=== PATIENT | male | born 1960 | race Caucasian/White ===

== ENCOUNTER → 2016-11-05 | Outpatient (CLI) | payer BC ==
[2016-11-05 09:49] LABS: Aty Lym Flag Slight; CH 33.6; CHCM 34.4; HCT 49.6 % (39.0-53.0); HDW 2.33; HGB 16.7 gm/dL (13.0-17.5); MCH 32.9 pg (25.0-35.0); MCHC 33.6 g/dL (31.0-37.0); MCV 98.1 fL (80.0-100.0); Mean Platelet Volume 8.4; RBC 5.06 m/uL (4.30-5.90); RDW 12.2 % (11.5-15.5); WBC 5.2 k/uL (3.8-10.6); WBC (Perox) 5.12
[2016-11-05 10:01] LABS: ALT 84 U/L (21-72); AST 72 U/L (17-59); Alkaline Phosphatase 55 U/L (38-126); Anion Gap 11 mmol/L; Blood Urea Nitrogen 15 mg/dL (9-20); Calcium 9.4 mg/dL (8.4-10.2); Carbon Dioxide 24 mmol/L (22-30); Chloride 105 mmol/L (98-107); Cholesterol 150 mg/dL (<200); Glucose 104 mg/dL (74-99); HDL Cholesterol 44 mg/dL (40-60); Non-African American GFR(MDRD) >60 (>60 ml/min/1.73 sqM); Potassium 4.8 mmol/L (3.5-5.1); Sodium 140 mmol/L (137-145); Total Bilirubin 0.9 mg/dL (0.2-1.3); Total Protein 7.2 g/dL (6.3-8.2); Triglycerides 169 mg/dL (<150)
[2016-11-05 10:18] LABS: Add Differential Manual Differential
[2016-11-05 10:20] LABS: Manual Review Performed; Nucleated Red Blood Cells 0 /100 WBC (0-0); Total Cells Counted 100
[2016-11-05 10:21] LABS: RBC Morphology Normal
[2016-11-05 11:09] LABS: Hemoglobin A1C 5.6 % (4.2-6.1)
== END | disposition home or self-care (01) ==
LOC: LABWHC1 09:07
PROVIDERS: ATTEND Internal Medicine Critical Care Medicine
DX: Z00.00 Encounter for general adult medical examination without abnormal findings (principal); K21.9 Gastro-esophageal reflux disease without esophagitis; E78.5 Hyperlipidemia, unspecified; Z12.5 Encounter for screening for malignant neoplasm of prostate
CPT/HCPCS: 84439; 80061; 80053; 83036; 84443; 85025; 82306; 36415; G0103

== ENCOUNTER → 2017-11-05 | Outpatient (CLI) | payer BC ==
[2017-11-05 08:14] LABS: Basophils # (A) 0.1 k/uL (0-0.2); Basophils % (A) 1 %; Eosinophils # (A) 0.2 k/uL (0-0.7); Eosinophils % (A) 4 %; HCT 47.5 % (39.0-53.0); HGB 15.3 gm/dL (13.0-17.5); Lymphocytes # (A) 1.8 k/uL (1.0-4.8); Lymphocytes % (A) 36 %; MCH 32.6 pg (25.0-35.0); MCHC 32.3 g/dL (31.0-37.0); Mean Platelet Volume 7.6; Monocytes # (A) 0.4 k/uL (0-1.0); Monocytes % (A) 8 %; Neutrophils # (A) 2.4 k/uL (1.3-7.7); Neutrophils % (A) 47 %; Platelet Count 135 k/uL (150-450); RDW 11.8 % (11.5-15.5); WBC 5.1 k/uL (3.8-10.6)
[2017-11-05 09:47] LABS: ALT 73 U/L (21-72); AST 54 U/L (17-59); Albumin 4.2 g/dL (3.5-5.0); Alkaline Phosphatase 58 U/L (38-126); Anion Gap 11 mmol/L; Bilirubin, Delta 0.4 mg/dL (0.0-0.2); Bilirubin,Unconjugated 0.3 mg/dL (0.0-1.1); Blood Urea Nitrogen 17 mg/dL (9-20); Calcium 9.7 mg/dL (8.4-10.2); Carbon Dioxide 28 mmol/L (22-30); Chloride 104 mmol/L (98-107); Cholesterol 156 mg/dL (<200); Glucose 111 mg/dL (74-99); HDL Cholesterol 45 mg/dL (40-60); LDL Cholesterol,Calculated 69 mg/dL (0-99); Potassium 4.4 mmol/L (3.5-5.1); Sodium 143 mmol/L (137-145); Total Bilirubin 0.7 mg/dL (0.2-1.3); Triglycerides 209 mg/dL (<150)
[2017-11-05 10:04] LABS: T4, Free (Free Thyroxine) 0.76 ng/dL (0.78-2.19)
[2017-11-05 10:18] LABS: PSA Annual Screen 1.34 ng/mL (0.00-4.00)
[2017-11-05 16:48] LABS: Hemoglobin A1C 5.6 % (4.0-6.0)
== END | disposition home or self-care (01) ==
LOC: LABWHC1 07:15
PROVIDERS: ATTEND Internal Medicine Critical Care Medicine
DX: E78.5 Hyperlipidemia, unspecified (principal); N40.0 Benign prostatic hyperplasia without lower urinary tract symptoms; Z79.899 Other long term (current) drug therapy
CPT/HCPCS: 84439; 80061; 80053; 82248; 84443; 85025; 82306; 83036; 36415; G0103

== ENCOUNTER → 2019-01-11 | Outpatient (CLI) | payer BC ==
[2019-01-11 07:52] LABS: Basophils % (A) 1 %; Eosinophils # (A) 0.2 k/uL (0-0.7); Eosinophils % (A) 3 %; HCT 46.7 % (39.0-53.0); HGB 15.5 gm/dL (13.0-17.5); Lymphocytes # (A) 1.7 k/uL (1.0-4.8); Lymphocytes % (A) 35 %; MCH 32.7 pg (25.0-35.0); MCHC 33.2 g/dL (31.0-37.0); MCV 98.5 fL (80.0-100.0); Mean Platelet Volume 7.9; Monocytes # (A) 0.4 k/uL (0-1.0); Monocytes % (A) 8 %; Neutrophils # (A) 2.4 k/uL (1.3-7.7); Neutrophils % (A) 49 %; Platelet Count 154 k/uL (150-450); RBC 4.74 m/uL (4.30-5.90); RDW 13.7 % (11.5-15.5); WBC 4.9 k/uL (3.8-10.6)
[2019-01-11 11:33] LABS: Albumin 4.5 g/dL (3.80-4.90); Albumin/Globulin Ratio 2.37 (1.60-3.17); Anion Gap 9.1 mmol/L (4.00-12.00); Calcium 9.4 mg/dL (8.7-10.3); Carbon Dioxide 27.9 mmol/L (21.6-31.8); Globulin 1.9 g/dL (1.6-3.3); LDL Cholesterol,Calculated 68.2 mg/dL (0.0-131.0); Potassium 4.1 mmol/L (3.5-5.5); Total Bilirubin 0.9 mg/dL (0.3-1.2); Total Protein 6.4 g/dL (6.2-8.2); VLDL Calculation 36.8 mg/dL (5.00-40.00)
[2019-01-11 12:54] LABS: T4, Free (Free Thyroxine) 0.9 ng/dL (0.80-1.80)
[2019-01-11 14:18] LABS: Hemoglobin A1C 5.9 % (4.0-6.0)
== END | disposition home or self-care (01) ==
LOC: LABWHC1 07:14
PROVIDERS: ATTEND Internal Medicine Critical Care Medicine
DX: Z00.00 Encounter for general adult medical examination without abnormal findings (principal); G47.33 Obstructive sleep apnea (adult) (pediatric); F41.9 Anxiety disorder, unspecified; K21.9 Gastro-esophageal reflux disease without esophagitis; E78.5 Hyperlipidemia, unspecified; Z12.5 Encounter for screening for malignant neoplasm of prostate
CPT/HCPCS: 84439; 80061; 80053; 84443; 85025; 82306; 83036; 36415; G0103

== ENCOUNTER → 2020-04-29 | Outpatient (CLI) | payer BC ==
[2020-04-29 10:00] LABS: Basophils # (A) 0.1 k/uL (0-0.2); Basophils % (A) 1 %; Eosinophils # (A) 0.2 k/uL (0-0.7); Eosinophils % (A) 3 %; HCT 47.2 % (39.0-53.0); HGB 15.4 gm/dL (13.0-17.5); Lymphocytes # (A) 1.7 k/uL (1.0-4.8); Lymphocytes % (A) 34 %; MCHC 32.7 g/dL (31.0-37.0); MCV 101.1 fL (80.0-100.0); Mean Platelet Volume 8.3; Monocytes # (A) 0.5 k/uL (0-1.0); Monocytes % (A) 9 %; Neutrophils # (A) 2.4 k/uL (1.3-7.7); Neutrophils % (A) 48 %; Platelet Count 129 k/uL (150-450); RBC 4.67 m/uL (4.30-5.90); RDW 12.1 % (11.5-15.5); WBC 5.1 k/uL (3.8-10.6)
[2020-04-29 15:56] LABS: African American GFR (CKD) 83.5 (60.0-200.0); Albumin 4.3 g/dL (3.80-4.90); Albumin/Globulin Ratio 2.05 (1.60-3.17); Anion Gap 5.7 mmol/L (4.00-12.00); BUN/Creat Ratio 17.27 Ratio (12.00-20.00); Calcium 9.1 mg/dL (8.7-10.3); Carbon Dioxide 24.3 mmol/L (21.6-31.8); Chol/HDL Ratio 3.3; Globulin 2.1 g/dL (1.6-3.3); LDL Cholesterol,Calculated 62.4 mg/dL (0.0-131.0); Non-African American GFR(CKD) 72.1 (60.0-200.0); Potassium 4.5 mmol/L (3.5-5.5); Total Protein 6.4 g/dL (6.2-8.2); VLDL Calculation 36.6 mg/dL (5.00-40.00)
[2020-04-29 16:04] LABS: PSA Annual Screen 1.6 ng/mL (0.0-4.0)
[2020-04-29 17:46] LABS: Hemoglobin A1C 5.8 % (4.0-6.0)
== END | disposition home or self-care (01) ==
LOC: LABWHC1 08:10
PROVIDERS: ATTEND Internal Medicine Critical Care Medicine
DX: Z00.00 Encounter for general adult medical examination without abnormal findings (principal); E78.5 Hyperlipidemia, unspecified; K21.9 Gastro-esophageal reflux disease without esophagitis; F41.9 Anxiety disorder, unspecified; G47.33 Obstructive sleep apnea (adult) (pediatric)
CPT/HCPCS: 84439; 80061; 80053; 84443; 85025; 83036; 36415; G0103

== ENCOUNTER → 2020-05-14 | Outpatient (CLI) | payer BC ==
[~2020-05-14] MED LIST: REGADENOSON 0.4 MG/5 ML SYRINGE IV ONE
--- NOTE | 2020-05-14 12:43 | NM ---
EXAMINATION TYPE: NM stress lexiscan cardiolite DATE OF EXAM: 05/14/2020 COMPARISON: NONE HISTORY: 59-year-old male with chest pain TECHNIQUE: After the intravenous administration of 10.5 mCi Tc 99m Sestamibi - Cardiolite resting SP ECT images acquired 55 minutes post injection. The patient received 0.4mg Lexiscan, 24.9 mCi Tc 99m Sestamibi - Stress images obtained [address] injection FINDINGS: Review of stress and rest SPECT images demonstrates no distinct perfusion abnormality. Mild left vent ricular dilatation. Gated analysis shows normal wall motion with an estimated left ventricular ejecti on fraction of 47 %. TID is calculated at 0.96, within normal limits. IMPRESSION: 1. No scintigraphic evidence for reversible ischemia. 2. There is mild left ventricular chamber enlargement and mildly diminished LVEF of 47%.
--- NOTE | 2020-05-15 10:57 | EST ---
Stress Test Results/Findings: Exam Performed: NM stress lexiscan cardiolite Exam Date: 05/14/20 Reason for Exam: CHEST PAIN Height: 6 ft 1 in Weight: 245 kg Protocol: LEXISCAN Stage: NA Duration of Exercise: NA Resting Heart Rate: 68 Resting Blood Pressure: 126/86 Maximum Achieved Heart Rate: 87 Maximum Achieved Blood Pressure: 161/87 85% PMHR: NA 100% PMHR: NA METS: NA Technologist Comment: Stress Test Results/Findings: At baseline patient's EKG shows normal sinus rhythm with heart rate of 68 bpm with borderline 0.[address] elevation in leads 2 and aVF, T-wave flattening in aVL. At peak infusion there is no significant change, no significant ST or T-wave deviation from baseline. Conclusions: 1. Normal EKG response to Lexiscan infusion without significant ischemic changes noted. 2. Nuclear imaging reported separately. [facility]
== END | disposition home or self-care (01) ==
LOC: RADNMMAIN 07:36
PROVIDERS: ATTEND Internal Medicine Critical Care Medicine
DX: I51.7 Cardiomegaly (principal)
CPT/HCPCS: 93017; 78452; A9500; J2785

== ENCOUNTER → 2020-09-12 | Outpatient (CLI) | payer BC ==
[2020-09-12 09:31] LABS: HCT 48.6 % (39.0-53.0); HGB 16.4 gm/dL (13.0-17.5); MCH 33.7 pg (25.0-35.0); MCHC 33.7 g/dL (31.0-37.0); MCV 99.9 fL (80.0-100.0); Mean Platelet Volume 8.3; Platelet Count 127 k/uL (150-450); RBC 4.87 m/uL (4.30-5.90); RDW 11.5 % (11.5-15.5); WBC 4.8 k/uL (3.8-10.6)
[2020-09-12 11:12] LABS: Basophils # (M) 0.05 k/uL (0-0.2); Myelocytes # (M) 0.05 k/uL (0); Myelocytes % 1 %; Nucleated Red Blood Cells 0 /100 WBC (0-0)
[2020-09-12 11:14] LABS: Band Neutrophils % 3 %; Eosinophils # (M) 0.24 k/uL (0-0.7); Lymphocytes # (M) 1.92 k/uL (1.0-4.8); Monocytes # (M) 0.58 k/uL (0-1.0); Neutrophils % (M) 40 %; Total Cells Counted 200
[2020-09-12 17:29] LABS: African American GFR (CKD) 93.7 (60.0-200.0); Albumin 4.6 g/dL (3.80-4.90); Albumin/Globulin Ratio 2.09 (1.60-3.17); Anion Gap 8.1 mmol/L (4.00-12.00); Calcium 9.5 mg/dL (8.7-10.3); Carbon Dioxide 26.9 mmol/L (21.6-31.8); Globulin 2.2 g/dL (1.6-3.3); Non-African American GFR(CKD) 80.9 (60.0-200.0); Potassium 4.5 mmol/L (3.5-5.5); Total Bilirubin 0.9 mg/dL (0.3-1.2); Total Protein 6.8 g/dL (6.2-8.2)
== END | disposition home or self-care (01) ==
LOC: LABWHC1 08:44
PROVIDERS: ATTEND Internal Medicine Critical Care Medicine
DX: D69.6 Thrombocytopenia, unspecified (principal); R94.5 Abnormal results of liver function studies
CPT/HCPCS: 36415; 80053; 85025

== ENCOUNTER → 2021-08-05 | Outpatient (CLI) | payer BC ==
[2021-08-05 14:53] LABS: Basophils # (A) 0.07 X 10*3/uL (0.00-0.10); Basophils % (A) 1.3 %; Eosinophils % (A) 5.5 %; HCT 47.9 % (39.6-50.0); HGB 16.5 g/dL (13.0-17.0); Lymphocytes # (A) 2.19 X 10*3/uL (0.90-5.00); Lymphocytes % (A) 40.3 %; MCH 34.2 pg (27.0-32.0); MCHC 34.4 g/dL (32.0-37.0); MCV 99.4 fL (80.0-97.0); Monocytes # (A) 0.68 X 10*3/uL (0.20-1.00); Monocytes % (A) 12.5 %; Neutrophils # (A) 2.18 X 10*3/uL (1.80-7.70); Platelet Count 144 X 10*3/uL (140-440); RBC 4.82 X 10*6/uL (4.40-5.60); RDW 11.5 % (11.5-14.5); WBC 5.44 X 10*3/uL (4.50-10.00)
[2021-08-05 17:57] LABS: ALT 74 U/L (10-49); AST 64 U/L (14-35); African American GFR (CKD) 100.1 (60.0-200.0); Albumin 4.5 g/dL (3.8-4.9); Albumin/Globulin Ratio 1.83 (1.60-3.17); Alkaline Phosphatase 62 U/L (41-126); BUN/Creat Ratio 16.45 Ratio (12.00-20.00); Blood Urea Nitrogen 15.5 mg/dL (9.0-27.0); Calcium 9.5 mg/dL (8.7-10.3); Chloride 103 mmol/L (96-109); Chol/HDL Ratio 3.48 Ratio; Globulin 2.5 g/dL (1.6-3.3); Glucose 110 mg/dL (70-110); LDL Cholesterol,Calculated 62.8 mg/dL (0.0-131.0); Non-African American GFR(CKD) 86.3 (60.0-200.0); Sodium 140 mmol/L (135-145)
== END | disposition home or self-care (01) ==
LOC: LABWHC1 08:38
PROVIDERS: ATTEND Internal Medicine Critical Care Medicine
DX: E78.5 Hyperlipidemia, unspecified (principal); R73.09 Other abnormal glucose; E03.9 Hypothyroidism, unspecified
CPT/HCPCS: 84439; 80061; 80053; 84443; 85025; 84403; 82306; 83036; 36415; G0103

== ENCOUNTER → 2021-08-05 | Outpatient (CLI) | payer BC | END | disposition home or self-care (01) | LOC: LABPAT 08:41 | PROVIDERS: ATTEND Orthopaedic Surgery Hand Surgery | DX: Z01.818 Encounter for other preprocedural examination (principal); G56.02 Carpal tunnel syndrome, left upper limb | CPT/HCPCS: 93005 ==

== ENCOUNTER 2021-08-27 09:33 | Day surgery (SDC) | payer BC ==
--- NOTE | 2021-08-25 10:32 | P.HPOR ---
History of Present Illness H&P Date: 08/25/21 Chief Complaint: Left Carpal Tunnel Syndrome Subjective: This is a 60 year old male that presents today for follow up evaluation regarding left hand paresthesias. He states he notices the symptoms most when driving and also has nocturnal symptoms. His symptoms are mainly in his right index, middle and part of the ring finger. He denies any shooting pains down the arm. He states the numbness has become more constant in the index and middle finger and thumb. At his last visit we initiated night splinting which he states helped his night time symptoms but he is still experiencing daytime paresthesias daily. Physical Examination: LUE: AIN/PIN/Radial/Ulnar/Median motor intact. Radial/Ulnar/Median SILT. 2+/4 Radial/Ulnar pulses palpated. Positive Durkans compression, positive tinels at wrist. 2 pt discrimination 4mm in all digits. 5/5 APB, 5/5 FDI Impression: 1.) Left carpal tunnel syndrome Plan: Diagnosis and treatment options were discussed with the patient regarding their left carpal tunnel syndrome. He is still having paresthesias despite having tried night splinting. He would like to proceed with left carpal tunnel release after risks and benefits of surgery are discussed with the patient including bleeding, infection, damage to surrounding tissue, need for further surgery, need to convert to open technique and he was agreeable with this plan of action. Pre-op labs and EKG will be ordered and he will be scheduled for surgery in the near future. -Yoandy Patricia DO Orthopedic Hand/Upper Extremity Surgeon Past Medical History Past Medical History: GERD/Reflux, Hyperlipidemia History of Any Multi-Drug Resistant Organisms: None Reported Past Surgical History: Orthopedic Surgery Additional Past Surgical History / Comment(s): knee reconstruction, shoulder sx Past Anesthesia/Blood Transfusion Reactions: No Reported Reaction Past Psychological History: No Psychological Hx Reported Past Alcohol Use History: Occasional Past Drug Use History: None Reported Medications and Allergies Home Medications Medication Instructions Recorded Confirmed Type Atorvastatin Calcium [Lipitor] 10 mg PO Q48H 09/12/14 09/11/16 History Pantoprazole [Protonix] 40 mg PO DAILY 09/08/16 09/11/16 History Allergies Allergy/AdvReac Type Severity Reaction Status Date / Time Sulfa (Sulfonamide Allergy Unknown Verified 09/11/16 08:35 Antibiotics) Physical Examination Osteopathic Statement: *. No significant issues noted on an osteopathic structural exam other than those noted in the History and Physical/Consult.
[2021-08-25 15:30] VITALS: BMI 31.4
[~2021-08-27 09:33] MED LIST changes: +LACTATED RINGERS 1,000 ML IV SCH; +LIDOCAINE 1% (10MG/ML) FOR IV START INTRADERMA PRN; +Pre Op ABX Message 1 EACH MISC MISCELLANE ONE; -REGADENOSON 0.4 MG/5 ML SYRINGE IV ONE
[2021-08-27] MEDS ORDERED: ONDANSETRON 4 MG/2 ML VIAL ONE (10:42)
[2021-08-27 10:46] VITALS: TEMP 97.3
[2021-08-27] MEDS ORDERED: KETAMINE 10 MG/ML 20 ML VIAL ONE (11:05)
[2021-08-27] MEDS ORDERED: .fentaNYL (PF) 50 MCG/ML 2 ML AMP ONE (11:05)
[2021-08-27] MEDS ORDERED: PROPOFOL 10 MG/ML 20 ML VIAL IV ONE (11:05)
[2021-08-27] MEDS ORDERED: MIDAZOLAM 2 MG/2 ML VIAL ONE (11:05)
[2021-08-27] MEDS ORDERED: LIDOCAINE 1% INJ 10MG/ML (20 ML MDV) SQ ONE ×2 (11:13→11:16)
[2021-08-27] MEDS ORDERED: BUPIVACAINE (PF) 0.5% 30 ML VIAL SQ ONE ×2 (11:13→11:16)
[2021-08-27 12:26] VITALS: BP 131/78; PULSE 61; RESP 17
--- NOTE | 2021-08-27 21:29 | P.OP ---
Date of Procedure: 08/27/21 Preoperative Diagnosis: Left carpal tunnel syndrome Postoperative Diagnosis: Left carpal tunnel syndrome Procedure(s) Performed: Left endoscopic carpal tunnel release Anesthesia: MAC Surgeon: Yoandy Patricia Ui Architect #1: Joe Gill Estimated Blood Loss (ml): 0 Pathology: none sent Condition: stable Disposition: PACU Description of Procedure: This is a 60 year old male who presents today for a left endoscopic carpal tunnel release after having failed conservative treatment in the past. Risks and benefits of surgery were discussed with the patient including bleeding, damage to surrounding tissue, infection, need to convert to open procedure, need for further surgery as well as risks of anesthesia including pulmonary embolism and even and the patient wished to proceed with surgical intervention. The patients was seen in the pre-operative area by myself. Consent and H&P were completed and updated. The correct extremity was marked in the pre-operative area by myself and all other questions were answered. Operative Narrative: The patient was brought to the operating room by the department of anesthesia. They remained on the portable stretcher and a rolling hand table was brought to the side of the operative extremity. Pre-operative time out was performed indicating the correct patient, procedure and laterality. All in the room agreed. The patient was then drifted off to sleep by the department of anesthesia. MAC anesthesia was utilized and a 50:50 mixture of 1% Lidocaine and 0.5% bupivacaine was injected into the subcutaneous tissues of the palmar skin, 8 ccs total. A nonsterile tourniquet was then applied to the operative extremity and the left upper extremity was then prepped and draped in normal sterile fashion. The operative extremity was the exsanguinated with an esmarch bandage and the tourniquet was inflated to 250mmHg. 15 blade scalpel was utilized to make a transverse incision on the palmar skin just ulnar to the palmaris longus tendon at the level of the distal wrist crease. Ragnell retractor was then placed radially and blunt dissection was performed to reveal the distal forearm fascia. This was lifted with fine Kash pick ups and Littler tenotomy scissors were then used to open the forearm fascia transversely and a double skin hook was then placed. Hamate finder was placed into the carpal tunnel and then sequential sized dilators were inserted followed by the synovial elevator to separate the flexor tenosynovium from the undersurface of the transverse carpal ligament and a washboard texture was felt. The MicroAire endoscopic carpal tunnel release system gun was the then inserted into the carpal tunnel hugging the deep portion of the transverse carpal ligament in line with the base of the ring finger. Transverse fibers of the ligament were directly visualized. Pressure was applied on the palm to reveal the distal extent of the transverse carpal ligament. The blade was then deployed and the distal half of the transverse carpal ligament was released. The scope was then brought distal again and remaining transverse fibers were incised with the blade. The proximal half of the transverse carpal ligament was then divided and again the scope was advanced distal and remaining transverse fibers were incised with the blade. The radial and ulnar leaflets were directly visualized and mobile consistant with complete release. Tenotomy scissors were then utili zed to release the remaining distal forearm fascia under direct visualization taking care to preserve the palmar cutaneous branch of the median nerve. Skin closure was performed with interrupted 4-0 Monocryl suture followed by Mastisol and steri strips. Sterile dressing was applied consisting of adaptic, 4x4s, Webril, and an joseph bandage Yoandy Patricia DO Orthopedic Hand/Upper Extremity Surgeon
== END 2021-08-27 12:45 | disposition home or self-care (01) ==
LOC: OR 09:33
PROVIDERS: ATTEND Orthopaedic Surgery Hand Surgery
DX: G56.02 Carpal tunnel syndrome, left upper limb (principal); K21.9 Gastro-esophageal reflux disease without esophagitis; E78.5 Hyperlipidemia, unspecified; G47.33 Obstructive sleep apnea (adult) (pediatric); E07.9 Disorder of thyroid, unspecified; Z79.899 Other long term (current) drug therapy; Z88.2 Allergy status to sulfonamides
CPT/HCPCS: 29848; J2250; J2405; J2001; J3010; J2704

== ENCOUNTER 2022-09-11 08:16 | Day surgery (SDC) | payer BC ==
[2022-09-08 15:58] VITALS: BMI 32.5
[~2022-09-11 08:16] MED LIST changes: -LIDOCAINE 1% (10MG/ML) FOR IV START INTRADERMA PRN; -Pre Op ABX Message 1 EACH MISC MISCELLANE ONE
[2022-09-11 08:56] VITALS: TEMP 97
[2022-09-11] MEDS ORDERED: PROPOFOL 10 MG/ML 20 ML VIAL IV ONE (09:37)
--- NOTE | 2022-09-11 10:04 | P.PCN ---
Date of Procedure: 09/11/22 Procedure(s) Performed: BRIEF HISTORY: Patient is a 61-year-old pleasant white male scheduled for an elective colonoscopy as a part of evaluation of prior history of colon polyps. Last colonoscopy was 6 years ago. PROCEDURE PERFORMED: Colonoscopy with snare polypectomy. PREOPERATIVE DIAGNOSIS: History of colon polyps. IV sedation per Anesthesia. PROCEDURE: After informed consent was obtained, the patient, was brought into the endoscopy unit. IV sedation was administered by Anesthesia under continuous monitoring. Digital rectal examination was normal. Initially the Olympus CF-160 flexible video colonoscope was then inserted in the rectum, gradually advanced into the cecum without any difficulty. Careful examination was performed as the scope was gradually being withdrawn. Ileocecal valve and the appendiceal orifice were visualized and appeared normal. Prep was fair.. Mucosa of the cecum, appeared normal. Ascending colon there was a 3 mm and 5 mm polyp removed by snare polypectomy. Rest of the ascending colon, transverse colon, descending colon, appeared normal. The sigmoid: There was a 5 limited polyp removed by snare polypectomy. Scattered sigmoid diverticulosis seen. Rest of the sigmoid colon, and rectum appeared normal. Retroflexion was performed in the rectum and no lesions were seen. The patient tolerated the procedure well. IMPRESSION: 3 mm and 5 mm ascending colon polyp status post polypectomy 5 mm sigmoid colon polyp status post polypectomy Scattered sigmoid diverticulosis RECOMMENDATIONS: Findings of this examination were discussed with the patient as well as his family. He was advised to follow with the biopsy results. If the biopsy results adenoma he can have a repeat colonoscopy in 5 years..
[2022-09-11 10:09] VITALS: RESP 16
[2022-09-11 10:25] VITALS: BP 108/63; PULSE 65
== END 2022-09-11 10:54 | disposition home or self-care (01) ==
LOC: ORWHC2ENDO 08:16
PROVIDERS: ATTEND Internal Medicine Gastroenterology
DX: Z12.11 Encounter for screening for malignant neoplasm of colon (principal); D12.3 Benign neoplasm of transverse colon; D12.5 Benign neoplasm of sigmoid colon; D12.2 Benign neoplasm of ascending colon; K57.30 Diverticulosis of large intestine without perforation or abscess without bleeding; Z87.19 Personal history of other diseases of the digestive system
CPT/HCPCS: 88305; 45385; J2704

== ENCOUNTER → 2023-07-02 | Outpatient (CLI) | payer BC ==
--- NOTE | 2023-07-02 15:06 | US ---
EXAMINATION TYPE: US carotid duplex BILAT DATE OF EXAM: 07/02/2023 COMPARISON: NONE CLINICAL INDICATION: Male, 62 years old with history of R42 DIZZINESS AND GIDDINESS; dizziness TECHNIQUE: Carotid duplex ultrasound examination. Indirect Doppler criteria was utilized. FINDINGS: EXAM MEASUREMENTS: RIGHT: Peak Systolic Velocity (PSV) cm/sec ----- Right CCA: 93.1 ----- Right ICA: 111 ----- Right ECA: 130 ICA/CCA ratio: 1.19 RIGHT: End Diastole cm/sec ----- Right CCA: 10.2 ----- Right ICA: 28.8 ----- Right ECA: 10.9 LEFT: Peak Systolic Velocity (PSV) cm/sec ----- Left CCA: 96.5 ----- Left ICA: 93.1 ----- Left ECA: 96.5 ICA/CCA ratio: 0.96 LEFT: End Diastole cm/sec ----- Left CCA: 18.3 ----- Left ICA: 29.9 ----- Left ECA: 0.0 VERTEBRALS (direction of flow): Right Vertebral: unable to visualize Left Vertebral: Antegrade Rhythm: Arrhythmia ALGEBRA TUTOR NOTES: Mild plaque bilateral bifurcations. no evidence of increased velocities IMPRESSION: Mild plaque bilaterally with no significant hemodynamic stenosis. Criteria for Assigning % of Stenosis / Diameter reduction (Estimation based on the indirect measurements of the internal carotid artery velocities (ICA PSV). 1. Normal (no stenosis)=ICA PSV < 125 cm/s: ratio < 2.0: ICA EDV<40 cm/s. 2. Less than 50% stenosis=ICA PSV < 125 cm/s: ratio < 2.0: ICA EDV<40 cm/s. 3. 50 to 69% stenosis=ICA PSV of 125 to 230 cm/s: ration 2.0 ? 4.0: ICA EDV 40-100 cm/s. 4. Greater than 70% stenosis to near occlusion= ICA PSV > 230 cm/s: ratio > 4.0: ICA EDV > 100 cm/s. 5. Near occlusion= ICA PSV velocities may be low or undetectable: variable ratio and ICA EDV. 6. Total occlusion=unable to detect flow.
--- NOTE | 2023-07-02 17:58 | CA ---
Transthoracic Echo Report Name: Weston Moran Age: 62 Gender: M : 1960 Exam Date: 07/02/2023 15:04 Exam Location: [facility] Ht (in): 72 Wt (lb): 245 Ordering Physician: Elbert Pickard DO Attending/Referring Phys: Elbert Pickard DO Manager Rail Malissa Olivarez RDCS Procedure CPT: Indications: R42 dizziness and giddiness Cardiac Hx: Technical Quality: Fair Contrast 1: Total Dose (mL): Contrast 2: Total Dose (mL): MEASUREMENTS (Male / Female) Normal Values 2D ECHO LV Diastolic Diameter PLAX 4.2 cm 4.2 - 5.9 / 3.9 - 5.3 cm LV Systolic Diameter PLAX 3.0 cm IVS Diastolic Thickness 1.3 cm 0.6 - 1.0 / 0.6 - 0.9 cm LVPW Diastolic Thickness 1.4 cm 0.6 - 1.0 / 0.6 - 0.9 cm LV Relative Wall Thickness 0.6 RV Internal Dim ED PLAX 4.4 cm LA Volume 59.4 cm??? 18 - 58 / 22 - 52 cm??? LA Volume Index 24.6 cm???/m??? 16 - 28 cm???/m??? M-MODE Aortic Root Diameter MM 2.9 cm LA Systolic Diameter MM 3.8 cm LA Ao Ratio MM 1.3 AV Cusp Separation MM 2.2 cm DOPPLER AV Peak Velocity 183.1 cm/s AV Peak Gradient 13.4 mmHg AV Mean Velocity 138.6 cm/s AV Mean Gradient 8.1 mmHg AV Velocity Time Integral 38.0 cm AI Peak Velocity 436.7 cm/s AI Peak Gradient 76.3 mmHg AI Pressure Half Time 691.4 ms LVOT Peak Velocity 130.9 cm/s LVOT Peak Gradient 6.9 mmHg LVOT Velocity Time Integral 27.5 cm MV Area PHT 2.9 cm??? Mitral E Point Velocity 72.6 cm/s Mitral A Point Velocity 84.1 cm/s Mitral E to A Ratio 0.9 MV Deceleration Time 263.5 ms MV E' Velocity 5.1 cm/s Mitral E to MV E' Ratio 14.2 TR Peak Velocity 218.8 cm/s TR Peak Gradient 19.1 mmHg Right Ventricular Systolic Press 23.9 mmHg FINDINGS Left Ventricle Mildly increased left ventricular wall thickness. Left ventricular cavity size normal. Normal left ventricular systolic function with no obvious regional wall motion abnormalities. Left ventricular ejection fraction is estimated at 55-60 %. Right Ventricle Normal right ventricular function. Right ventricular dilatation. Right ventricular systolic pressure within normal limits. Right Atrium Normal right atrial size. Left Atrium Mildly increased left atrial volume. Mitral Valve Structurally normal mitral valve. Mild mitral annular calcification. Mild mitral regurgitation. Aortic Valve Trileaflet aortic valve. No aortic stenosis. Trace to mild aortic regurgitation. Tricuspid Valve Structurally normal tricuspid valve. Mild tricuspid regurgitation. Pulmonic Valve Structurally normal pulmonic valve. Trace pulmonic regurgitation. Pericardium No pericardial effusion. Aorta Normal size aortic root and proximal ascending aorta. CONCLUSIONS Normal LV systolic function Previewed by: Dr. Koby Woods MD (Electronically Signed) Final Date: 02 July 2023 17:57
== END | disposition home or self-care (01) ==
LOC: RADUSWWP 13:38
PROVIDERS: ATTEND Internal Medicine Critical Care Medicine
DX: R42 Dizziness and giddiness (principal)
CPT/HCPCS: 93306; 93880

== ENCOUNTER → 2023-09-30 | Day surgery (SDC) | payer BC ==
[2023-09-24 15:06] VITALS: BMI 31.0
[~2023-09-30] MED LIST changes: -LACTATED RINGERS 1,000 ML IV SCH; +SODIUM CHLORIDE 0.9% 1,000 ML IV SCH; +SODIUM CHLORIDE 0.9% 500 ML 500 ML IV ONE
[2023-09-30 06:55] VITALS: BP 143/95; PULSE 67; RESP 16; TEMP 98.1
--- NOTE | 2023-10-01 11:02 | P.EPPROC ---
- EP Procedure Note Electrophysiology Procedure Note: Diagnosis Recurrent presyncope Twelve-lead EKG shows sinus rhythm normal ID narrow QRS normal ST segments with early repolarization abnormality inferolaterally Tilt table test protocol Baseline blood pressure 131/74 mmHg, Baseline heart rate 66 beats a minute Patient was tilted upright at an angle of 70 per protocol There was a 10 mm drop in blood pressure, systolic within the first 2-4 minutes without any symptoms Thereafter the blood pressure remained stable around 120 systolic heart rates remained in the 60s and 70s No syncope noted Patient is laid supine at the end of the procedure Impression Normal twelve-lead EKG No syncope on tilt table testing No evidence for neurocardiogenic syncope Possible mild dysautonomia with a 10-20 mm drop in blood pressure with standing. However this was completely asymptomatic
== END ==
LOC: CATHEP 06:07
PROVIDERS: ATTEND Internal Medicine Clinical Cardiac Electrophysiology
DX: R55 Syncope and collapse (principal)
CPT/HCPCS: 93660

== ENCOUNTER → 2024-10-09 | Outpatient (CLI) | payer BC ==
--- NOTE | 2024-10-09 09:01 | US ---
EXAMINATION TYPE: US abdomen complete DATE OF EXAM: 10/09/2024 COMPARISON: NONE CLINICAL INDICATION: Male, 63 years old with history of D69.49 OTHER PRIMARY THROMBOCYTOPENIA; TECHNIQUE: Grayscale and color Doppler imaging of the abdomen was performed. FINDINGS: EXAM MEASUREMENTS: Liver Length: 14.8 cm Gallbladder Wall: 0.28 cm CBD: 0.23 cm, color Doppler imaging was utilized to isolate the common bile duct for measurement. Spleen: 11.1 cm Right Kidney: 12.3 x 6.4 x 6.9 cm Left Kidney: 13.0 x 6.2 x 7.4 cm Pancreas: Only portions of the pancreatic body are seen. Head and tail limited due to bowel gas Liver: Heterogeneous and attenuating. Gallbladder: wnl Evidence for sonographic Bingham's sign: No CBD: wnl Spleen: wnl Right Kidney: wnl, No hydronephrosis, calculi or masses seen Left Kidney: wnl, No hydronephrosis, calculi or masses seen Upper IVC: wnl Abd Aorta: prox limited due to bowel gas. Midportion measures up to 2.1 cm. IMPRESSION: 1. Heterogeneous and attenuating appearance to the liver could reflect hepatic steatosis or nonspecif ic hepatocellular disease. Correlate with LFTs, lipid profile, and patient risk factors. 2. No gallstones or biliary ductal dilatation. [facility], , 10/09/2024 8:59 AM
== END | disposition home or self-care (01) ==
LOC: RADUSWWP 08:10
PROVIDERS: ATTEND Internal Medicine Hematology & Oncology
DX: D69.49 Other primary thrombocytopenia (principal); E78.5 Hyperlipidemia, unspecified; D75.89 Other specified diseases of blood and blood-forming organs; D69.59 Other secondary thrombocytopenia; K76.89 Other specified diseases of liver
CPT/HCPCS: 76700

== ENCOUNTER 2024-12-19 10:36 | Day surgery (SDC) | payer BC ==
[2024-12-15 11:41] VITALS: BMI 32.7
[2024-12-19 11:04] VITALS: TEMP 97.8
[2024-12-19] MEDS: IV FLUID CONTINUATION 1,000 ML IV ONE (11:18)
[2024-12-19] MEDS: LACTATED RINGERS 1,000 ML IV SCH (11:19)
[2024-12-19] MEDS ORDERED: LIDOCAINE 2% (PF) 20 MG/ML 5 ML VIAL ONE (11:46)
[2024-12-19] MEDS ORDERED: PROPOFOL 10 MG/ML 20 ML VIAL IV ONE (11:46)
--- NOTE | 2024-12-19 11:56 | P.PCN ---
Date of Procedure: 12/19/24 Procedure(s) Performed: BRIEF HISTORY: Patient is a 64-year-old, pleasant, white male scheduled an upper endoscopy as a part of screening for esophageal varices. He was recently diagnosed with liver cirrhosis due to fatty liver disease. PROCEDURE PERFORMED: Esophagogastroduodenoscopy. PREOPERATIVE DIAGNOSIS: History of liver cirrhosis/fatty liver disease/screening for esophageal varices. IV sedation per anesthesia. PROCEDURE: After informed consent was obtained, the patient was brought into the endoscopy unit. IV sedation was administered by Anesthesia under continuous monitoring. Initially the Olympus GIF-140 video endoscope was inserted into the mouth. Esophagus intubated without any difficulty. It was gradually advanced into the stomach and duodenum and carefully examined. The bulb and the second part of the duodenum appeared normal. The scope at this time was withdrawn to the stomach, adequately insufflated with air, and upon careful examination, mucosa of the antrum, body, cardia and the fundus appeared normal. The scope was then withdrawn into the esophagus. The GE junction was located at 39 cm from the incisors. The esophagus appeared normal. There were no erosions or ulcerations seen and the patient tolerated the procedure well. IMPRESSION: 1. Very small distal esophageal varices with no evidence of red erickson ribera. 2. No evidence of gastric varices 3. Mild gastritis. RECOMMENDATIONS: The findings of this examination were discussed with the patient as well as his family. At this time no indication for beta-brendan therapy because of small esophageal varices with no high risk features of bleeding. Recommended repeat EGD in 2 years as a part of follow-up of esophageal varices..
[2024-12-19 12:07] VITALS: RESP 14
[2024-12-19 12:17] VITALS: BP 136/77; PULSE 68
== END 2024-12-19 12:47 | disposition home or self-care (01) ==
LOC: ORWHC2ENDO 10:36
PROVIDERS: ATTEND Internal Medicine Gastroenterology
DX: I85.10 Secondary esophageal varices without bleeding (principal); K74.60 Unspecified cirrhosis of liver; K76.0 Fatty (change of) liver, not elsewhere classified; K29.70 Gastritis, unspecified, without bleeding; E78.5 Hyperlipidemia, unspecified; G47.33 Obstructive sleep apnea (adult) (pediatric); K21.9 Gastro-esophageal reflux disease without esophagitis; F10.90 Alcohol use, unspecified, uncomplicated; Z99.89 Dependence on other enabling machines and devices; Z88.2 Allergy status to sulfonamides; Z79.899 Other long term (current) drug therapy
CPT/HCPCS: 43235; J2704; J2003